=== PATIENT | female | born 1990 | race Caucasian/White ===

== ENCOUNTER → 2016-06-08 | Outpatient (CLI) | payer BC | LOC: RAD 09:08 | PROVIDERS: ATTEND Nurse Practitioner Family | DX: K59.00 Constipation, unspecified (principal) | CPT/HCPCS: 74000 ==

== ENCOUNTER 2016-11-06 00:35 | Emergency (ER) | payer BC ==
[2016-11-06] MEDS ORDERED: ONDANSETRON HCL INJ/PF 4 MG/2 ML SDV IV ONE (03:33)
[2016-11-06] MEDS ORDERED: MORPHINE SULFATE 10 MG/ML INJ IV ONE ×2 (03:33→06:05)
--- NOTE | 2016-11-06 03:34 | ER Document Report ---
ED GI/ - General Chief Complaint: Abdominal Pain Stated Complaint: FLANK PAIN Time Seen by Provider: 11/06/16 03:27 Notes: Patient is a 26-year-old female that comes emergency department for chief complaint of left lower abdominal pain radiating around her side towards her back, symptoms started a couple of hours ago, symptoms are very sharp, causing her to be nauseated, she vomited once. She reports normal bowel movements. She denies fever or chills, vaginal bleeding or discharge. Past medical history of morbid obesity, hypertension, irritable bowel, , and ovarian cysts. TRAVEL OUTSIDE OF THE [place] IN LAST 30 DAYS: No - Related Data Allergies/Adverse Reactions: No Known Allergies Allergy (Verified 11/06/16 05:17) Past Medical History - General Information source: Patient - Social History Smoking Status: Never Smoker Frequency of alcohol use: None Drug Abuse: None Lives with: Family Family History: Reviewed & Not Pertinent Patient has suicidal ideation: No Patient has homicidal ideation: No - Past Medical History Cardiac Medical History: Reports: Hx Hypertension Denies: Hx Coronary Artery Disease, Hx Heart Attack, Hx Heart Murmur Pulmonary Medical History: Denies: Hx Asthma, Hx Bronchitis, Hx COPD, Hx Pneumonia Neurological Medical History: Denies: Hx Cerebrovascular Accident, Hx Seizures Endocrine Medical History: Reports: Hx Hypothyroidism - unsure if its Hyper or Hypo Renal/ Medical History: Denies: Hx Peritoneal Dialysis GI Medical History: Reports: Hx Gastroesophageal Reflux Disease - with . Denies: Hx Hiatal Hernia, Hx Ulcer Musculoskeltal Medical History: Denies Hx Arthritis Psychiatric Medical History: Reports: Hx Anxiety, Hx Depression - ON ZOLO[place] Traumatic Medical History: Reports: Hx Fractures - Lt wrist Past Surgical History: Reports: Hx Section. Denies: Hx Hysterectomy, Hx Pacemaker - Immunizations Hx Diphtheria, Pertussis, Tetanus Vaccination: Yes Review of Systems - Review of Systems Constitutional: No symptoms reported EENT: No symptoms reported Cardiovascular: No symptoms reported Respiratory: No symptoms reported Gastrointestinal: See HPI Genitourinary: See HPI Female Genitourinary: See HPI Musculoskeletal: No symptoms reported Skin: No symptoms reported Hematologic/Lymphatic: No symptoms reported Neurological/Psychological: No symptoms reported Physical Exam - Vital signs Vitals: Temp Pulse Resp BP Pulse Ox 97.4 F 88 20 113/65 98 11/06/16 00:48 11/06/16 00:48 11/06/16 00:48 11/06/16 00:48 11/06/16 00:48 Interpretation: Normal - General General appearance: Alert, Anxious In distress: Moderate - Appears to be in some pain, has difficulty holding still on the bed - HEENT Head: Normocephalic, Atraumatic Eyes: Normal Conjunctiva: Normal Extraocular movements intact: Yes Eyelashes: Normal Pupils: PERRL Nasal: Normal Mouth/Lips: Normal Mucous membranes: Normal Pharynx: Normal Neck: Normal - Respiratory Respiratory status: No respiratory distress Chest status: Nontender Breath sounds: Normal Chest palpation: Normal - Cardiovascular Rhythm: Regular Heart sounds: Normal auscultation Murmur: No - Abdominal Inspection: Normal Distension: No distension Bowel sounds: Normal Tenderness: Tender - Tender in the general left lower abdomen, nonspecific, no particular area of guarding, exam limited by very large abdomen Organomegaly: No organomegaly - Back Back: Normal, Nontender. No: CVA tenderness - No overt CVA tenderness - Extremities General upper extremity: Normal inspection, Nontender, Normal color, Normal ROM , Normal temperature General lower extremity: Normal inspection, Nontender, Normal color, Normal ROM , Normal temperature, Normal weight bearing. No: Bala's sign - Neurological Neuro grossly intact: Yes Cognition: Normal Orientation: AAOx4 Atremio Coma Scale Eye Opening: Spontaneous [place] Coma Scale Verbal: Oriented Artemio Coma Scale Motor: Obeys Commands [place] Coma Scale Total: 15 Speech: Normal Motor strength normal: LUE, RUE, LLE, RLE Sensory: Normal - Psychological Associated symptoms: Anxious - Skin Skin Temperature: Warm Skin Moisture: Dry Skin Color: Normal Course - Re-evaluation Re-evalutation: Patient obviously uncomfortable, does not have overt CVA tenderness or history of kidney stone, patient has a very difficult abdominal exam because of extremely large abdomen, patient does have tenderness in the left lower abdomen. She has a history of ovarian cysts, she has vomiting. Leukocytosis at 15.7 with elevation of neutrophils but no bandemia. No fever. No tachycardia Urinalysis is very nonspecific and contaminated. Chemistry is unremarkable. Ultrasound unfortunately very limited because of large abdomen, no obvious abnormalities noted including no ovarian cysts or abscess. Evaluation patient is still very uncomfortable, CT will be performed to rule out obstructive stone or other concerning abnormality. 11/06/16 CT shows left-sided 3 mm UVJ stone with mild hydronephrosis, hydroureter, stranding. No other abnormalities noted. Patient is pain-free on reevaluation. Discussed urology follow-up, treatment, patient will also be covered with Keflex because of uncertain urine, urine culture. Discussed return precautions in detail. Patient states understanding and agreement. - Vital Signs Vital signs: Temp Pulse Resp BP Pulse Ox 97.4 F 88 20 113/65 98 11/06/16 00:48 11/06/16 00:48 11/06/16 00:48 11/06/16 00:48 11/06/16 00:48 - Laboratory Result Diagrams: 11/06/16 05:05 11/06/16 05:53 Laboratory results interpreted by me: 11/06/16 11/06/16 11/06/16 05:05 05:05 05:53 WBC 15.9 H Seg Neutrophils % 86.4 H Lymphocytes % 10.3 L Monocytes % 2.9 L Absolute Neutrophils 13.7 H Glucose 118 H Urine Protein 30 H Discharge - Discharge Clinical Impression: Abdominal pain, left lower quadrant, Ureterolithiasis Vomiting Qualifiers: Vomiting type: unspecified Vomiting Intractability: non-intractable Nausea presence: with nausea Qualified Code(s): R11.2 - Nausea with vomiting, unspecified Condition: Stable Disposition: HOME, SELF-CARE Additional Instructions: Your workup shows you are passing a left sided 3 mm kidney stone. You should pass this with time. Take the pain medication as prescribed, take the nausea medication if needed, take the keflex antibiotic as prescribed. Follow up with Urology referral. Return to the ED for any concerning symptoms - fever, uncontrolled vomiting, severe pain, etc. [facility] Urologist in [place], [place] Address: [address] [place] [id number] [facility] Medical clinic in [place], [place] Address: [place] [address] Prescriptions: Morphine Sulfate [Morphine Ir 15 Mg Tablet] 15 mg PO Q4HP PRN #20 tablet PRN Reason: Ibuprofen [Motrin 600 mg Tablet] 600 mg PO Q8HP PRN #24 tablet PRN Reason: Cephalexin Monohydrate [Keflex 500 mg Capsule] 500 mg PO BID #10 capsule Ondansetron [Zofran Odt 4 mg Tablet] 1 - 2 tab PO Q4H PRN #15 tab.rapdis PRN Reason: For Nausea/Vomiting Forms: Return to Work
[2016-11-06 05:26] LABS: ABSOLUTE BASOPHILS # (AUTO) 0.1 10^3/uL (0.0-0.2); ABSOLUTE LYMPHOCYTES (AUTO) 1.6 10^3/uL (0.5-4.7); ABSOLUTE MONOCYTES (AUTO) 0.5 10^3/uL (0.1-1.4); ABSOLUTE NEUT (AUTO) 13.7 10^3/uL (1.7-8.2); BASOPHILS % (AUTO) 0.4 % (0-2); HEMATOCRIT 39.6 % (36.0-47.0); HEMOGLOBIN 12.8 g/dL (12.0-15.5); HGB HCT DIFFERENCE -1.2; LYMPHOCYTES % (AUTO) 10.3 % (13-45); MEAN CORPUSCULAR HEMOGLOBIN 27.4 pg (27.0-33.4); MEAN CORPUSCULAR HGB CONC 32.3 g/dL (32.0-36.0); MEAN CORPUSCULAR VOLUME 85 fl (80-97); MONOCYTES % (AUTO) 2.9 % (3-13); RED BLOOD COUNT 4.67 10^6/uL (3.72-5.28); SEGMENTED NEUTROPHILS % (AUTO) 86.4 % (42-78); WHITE BLOOD COUNT 15.9 10^3/uL (4.0-10.5)
[2016-11-06 05:31] LABS: AMORPHOUS SEDIMENT,URINE TRACE /HPF; APPEARANCE,URINE TURBID; BILIRUBIN,URINE NEGATIVE (NEGATIVE); GLUCOSE, URINE NEGATIVE (NEGATIVE); KETONES,URINE NEGATIVE (NEGATIVE); LEUKOCYTE ESTERASE,URINE NEGATIVE (NEGATIVE); NITRITE,URINE NEGATIVE (NEGATIVE); PROTEIN,URINE 30 mg/dL (NEGATIVE); URINE SPECIFIC GRAVITY 1.035; UROBILINOGEN,URINE NEGATIVE mg/dL (<2.0)
[2016-11-06] MEDS ORDERED: NORMAL SALINE 1000 ML 1,000 ML IV ONE (05:35)
[2016-11-06 06:15] LABS: ALANINE AMINOTRANSFERASE 24 U/L (9-52); ALBUMIN 4.2 g/dL (3.5-5.0); ALKALINE PHOSPHATASE 79 U/L (38-126); ANION GAP 13 (5-19); ASPARTATE AMINO TRANSFERASE 20 U/L (14-36); BILIRUBIN,DIRECT 0.3 mg/dL (0.0-0.4); BILIRUBIN,TOTAL 0.5 mg/dL (0.2-1.3); BLOOD UREA NITROGEN 19 mg/dL (7-20); CALCIUM 9.5 mg/dL (8.4-10.2); CARBON DIOXIDE 23 mmol/L (22-30); CHLORIDE 105 mmol/L (98-107); CREATININE RESULT 1.02 mg/dL (0.52-1.25); GLUCOSE 118 mg/dL (75-110); POTASSIUM 4.7 mmol/L (3.6-5.0); SODIUM 140.5 mmol/L (137-145); TOTAL PROTEIN 7.7 g/dL (6.3-8.2)
[2016-11-06] MEDS ORDERED: KETOROLAC TROMETHAMINE INJ/PF 30 MG/1 ML SDV IV ONE (06:51)
--- NOTE | 2016-11-06 07:03 | RADIOLOGY REPORT (SQ) ---
EXAM DESCRIPTION: U/S NON OB PEL TV W/DOPPLER COMPLETED DATE/TIME: 11/06/2016 6:43 am REASON FOR STUDY: left pelvic pain, hx cysts, vomiting . Left lower quadrant pain x1 hour. COMPARISON: None. TECHNIQUE: Grayscale images acquired of the pelvis via transabdominal and transvaginal approach and recorded on PACS. Additional selected color Doppler images recorded. LIMITATIONS: Overlying bowel gas and patient's body habitus. FINDINGS: UTERUS: Measures 10.3 x 5.7 x 4.4 cm. No focal myometrial mass was seen. ENDOMETRIAL STRIPE: 8.7 mm in double wall thickness. CERVIX: Measures 2.5 cm in length. Small amount of fluid within the endocervical canal. Nabothian c ysts are noted. RIGHT OVARY: Not visualized. LEFT OVARY: Not visualized. FREE FLUID: None noted. IMPRESSION: Nonvisualized ovaries. Small amount of fluid in the endocervical canal. TECHNICAL DOCUMENTATION: JOB ID: [id number] [employer]- All Rights Reserved
--- NOTE | 2016-11-06 07:30 | RADIOLOGY REPORT (SQ) ---
EXAM DESCRIPTION: CT LTD RENAL STONE PROTOCOL ON COMPLETED DATE/TIME: 11/06/2016 7:03 am REASON FOR STUDY: left flank pain, left abd/pelvis pain, vomiting COMPARISON: None. TECHNIQUE: CT scan of the abdomen and pelvis performed without intravenous or oral contrast. Images reviewed with lung, soft tissue, and bone windows. Reconstructed coronal and sagittal MPR images revi ewed. All images stored on PACS. All CT scanners at this facility use dose modulation, iterative reconstruction, and/or weight based d osing when appropriate to reduce radiation dose to as low as reasonably achievable (ALARA). [facility]: Dose Right [facility]: CareDose [facility]: Dose Right [facility]: Teradose 4D [facility]: [employer] RADIATION DOSE: Up-to-date CT equipment and radiation dose reduction techniques were employed. CTDIv ol: 19.2 mGy. DLP: 1080 mGy-cm.mGy. LIMITATIONS: None. FINDINGS: LOWER CHEST: No consolidation or pleural effusion. NON-CONTRASTED LIVER, SPLEEN, ADRENALS: Evaluation limited by lack of IV contrast. No identified sign ificant masses. PANCREAS: No peripancreatic inflammatory changes. GALLBLADDER: Present. RIGHT KIDNEY AND URETER: Assessment for masses limited by lack of IV contrast. No significant calci fications. No hydronephrosis or hydroureter. LEFT KIDNEY AND URETER: Assessment for masses limited by lack of IV contrast. There is mild perinep hric stranding. Mild hydronephrosis and hydroureter. 3 mm calculus at the left ureterovesical junc tion. AORTA AND RETROPERITONEUM: No abdominal aortic aneurysm. No retroperitoneal masses or hemorrhage. BOWEL AND PERITONEAL CAVITY: No dilated bowel loops or inflammatory changes. No free fluid. APPENDIX: Normal. PELVIS, BLADDER, AND ABDOMINAL WALL:The urinary bladder is decompressed. The uterus is present. No free fluid. Small fat containing umbilical hernia. BONES: No acute osseous findings. IMPRESSION: 3 mm obstructing calculus at the left UVJ with mild left hydroureteronephrosis and perin ephric stranding. TECHNICAL DOCUMENTATION: JOB ID: [id number] Quality ID # [id number]: Final reports with documentation of one or more dose reduction techniques (e.g., Au tomated exposure control, adjustment of the mA and/or kV according to patient size, use of iterative reconstruction technique) 2010 [employer]- All Rights Reserved
[2016-11-06] MEDS ORDERED: HYDROCODONE/ACETAMINOPHEN 5-325 MG 6 TAB/DSPK PO PRN (07:37)
[2016-11-06] MEDS ORDERED: ONDANSETRON ODT 4 MG TAB (6 TAB/DSPK) PO PRN (07:37)
[2016-11-06 08:15] VITALS: BP 132/80
== END 2016-11-06 08:10 | disposition home or self-care (01) ==
LOC: ER 00:35 → EEVIPCON 00:35 → ER 08:10
DX: N20.1 Calculus of ureter (principal); R10.32 Left lower quadrant pain; R11.2 Nausea with vomiting, unspecified; E66.01 Morbid (severe) obesity due to excess calories; I10 Essential (primary) hypertension
CPT/HCPCS: 96376; 99284; 96361; 96374; 96375; 36415; 87086; 85025; 81025; 80053; 81001; 76830; 93976; 76380; J1885; J2270; J2405; J7030